=== PATIENT | female | born 1945 | race Caucasian/White ===

== ENCOUNTER 2017-02-21 15:22 | Emergency (ER) | payer MEDICARE, OTHER ==
[2017-02-21] MEDS ORDERED: DIAZEPAM 10 MG/2 ML SYR ONE (16:07)
[2017-02-21] MEDS ORDERED: NORMAL SALINE 1,000 ML IV ONE (16:08)
[2017-02-21] MEDS ORDERED: ONDANSETRON HCL 4 MG/2 ML VIAL ONE (16:08)
[2017-02-21] MEDS ORDERED: HYDROmorphone HCL 1 MG/ML SYR ONE (16:08)
--- NOTE | 2017-02-21 17:05 | MRI REPORT ---
HISTORY: Severe low back pain extending to right hip and leg COMPARISON: None TECHNIQUE: Multiplanar multi sequential imaging of the lumbar spine obtained without IV gadolinium. FINDINGS: Alignment: Superior endplate compression fracture of T12, chronic in nature. Approximately 20% anteri or height loss. Marrow signal: Minimal endplate edema from T12 through L5 related to degenerative disc disease. Spinal cord: No cord signal abnormality. The conus terminates at L1-L2. Intervertebral discs: Disc desiccation throughout the lumbar spine. Moderate L1-L2 and L5-S1 disc hei ght loss. Axial images demonstrate the following: L1-L2: Diffuse disc bulge. No canal stenosis. Mild bilateral foraminal narrowing. L2-L3: Diffuse disc bulge. Spinal canal widely patent. Mild facet arthrosis. Moderate right and mild left foraminal stenosis per L3-L4: Diffuse disc bulge. Spinal canal remains patent. Mild to moderate bilateral foraminal stenosis . L4-L5: Diffuse disc bulge with moderate bilateral facet arthrosis and ligament flavum thickening. Sub articular disc extrusion with cranial migration, extending superiorly to the level of L3-L4. Extruded disc fragment measures up to 9 mm AP x 13 mm transverse x 2.2 cm craniocaudal, completely effacing t he right lateral recess contacting and displacing the traversing right L4 and L5 nerve roots in the t hecal sac. Severe right and moderate left foraminal stenosis. Right foraminal stenosis is more pronou nced related to the disc extrusion from the above level. L5-S1: Diffuse disc bulge with superimposed central disc extrusion. Disc contacts but does not signif icant displace the traversing right S1 nerve root. Spinal canal remains patent. Partial effacement ri ght lateral recess. Severe left and moderate right foraminal stenosis. IMPRESSION: 1. L4-L5 right paracentral disc extrusion with cranial migration to fully effaces the right lateral r ecess impinging on the right L4 and L5 nerve roots. 2. L5-S1 disc protrusion contacts but does not significantly displace the traversing right S1 nerve r oot in the thecal sac. 3. Multilevel moderate to severe foraminal stenosis as detailed above. 4. Mild multilevel endplate edema related to degenerative disc disease, a potential source of pain. Final Electronic Signature: This report was electronically signed by Cayetano Toth MD on 02/21/2017 5:03 PM. antonio /
--- NOTE | 2017-02-21 18:20 | ER PHYSICIAN DOCUMENTATION ---
Physician Documentation [facility] Name:Meagan Castaneda Age:71 yrs Sex:Female :1945 Arrival Date:02/21/2017 Time:15:22 [facility] ([place] Private MD: Gee Augustin Disposition: 02/21/17 17:56 Discharged to Home/Self Care. Impression: Acute Low Back Pain. - Condition is Good. - Discharge Instructions: BACK PAIN (Acute or Chronic). - Prescriptions for Dilaudid 2 mg Oral Tablet - take 1 tablet by ORAL route every 6 hours As needed; 10 tablet. Zofran 4 mg Oral Tablet - take 1-2 tablet by ORAL route every 4-6 hours As needed; 10 tablet. - Medical Reconciliation form form. - Follow up: Private Physician; When: 2 - 3 days; Reason: Recheck today's complaints, Continuance of care. - Problem is new. - Symptoms have improved. - Notes: If your pain is severe, you can take dilaudid, but don't take the Ultram (tramadol) and the Dilaudid at the same time. Call your orthopedic surgeon first thing tomorrow and make arrangements to be seen HILARIO. You need to go to the Emergency Room if you become very weak, develop incontinence, or inability to walk. HPI: 02/21 15:40 This 71 yrs old Female presents to ER via Walk In with complaints of Back tl1 Pain, Leg Pain. 15:40 The patient presents with pain that is acute, and an injury. The symptoms are located tl1 in the low back, right low back. Onset: The symptoms/episode began/occurred suddenly, just prior to arrival. The pain radiates down the patient's right lower extremity. Associated signs and symptoms: Pertinent positives: weakness, Pertinent negatives: abdominal pain, incontinence, numbness. The problem was sustained Getting out of her car.. Modifying factors: the patient symptoms are aggravated by any movement. Severity of symptoms: At their worst the symptoms were severe, in the emergency department the symptoms are unchanged. The patient has experienced similar episodes in the past, a few times. Historical: - Allergies: PENICILLINS; SULFA (SULFONAMIDES); - Home Meds: 1. amlodipine 5 mg oral tab 1 tab once daily for Hypertension 2. tramadol 50 mg oral tab 1 tab every 6 hours as needed for Pain 3. Zanaflex 4 mg oral tab 1 tab every 6 hours as needed not to exceed 3 doses in 24 hours for Muscle Spasm 4. metformin 500 mg oral Tb24 2 tabs 2 times per day for Type 2 Diabetes Mellitus 5. Lantus 100 unit/mL subcutaneous soln 20units nightly for Type 2 Diabetes Mellitus 6. Humalog 100 unit/mL subcutaneous soln Unknown after meals and before bedtime for Type 2 Diabetes Mellitus 7. lisinopril 10 mg oral tab 1 tab once daily for Hypertension 8. clonidine 0.2 mg oral tab 1 tab 2 times per day for Hypertension - PMHx: Diabetes - IDDM; Hypertension; hyperlipidemia; OSTEOARTHRITIS; - PSHx: laminectomy C5,C6; L ankle repair; HYSTERECTOMY; CHOLECYSECTOMY; rotator cuff L shoulder; CARPAL TUNNEL REPAIR; R knee scope; - Tetanus: < 10 years. - Ebola Screening: : Patient negative for fever greater than or equal to 101.5 degrees Fahrenheit, and additional compatible Ebola Virus Disease symptoms. Patient denies exposure to infectious person. Patient denies travel to an Ebola-affected area in the 21 days before illness onset. . - Immunization history: Pneumococcal vaccine is up to date, Flu Vaccine < 1 year. - Social history: Smoking status: Patient states was never smoker of tobacco. ROS: 15:49 Back: Positive for decreased range of motion, pain at rest, pain with movement, tl1 radiated pain, of the lumbar area and right low back. 15:49 All other systems are negative. Exam: 15:49 Head/Face: Normocephalic, atraumatic. tl1 15:49 Constitutional: The patient appears alert, awake, well developed, well hydrated, well groomed, well nourished, in obvious distress, in obvious pain, restless, uncomfortable. 15:49 Cardiovascular: Rate: normal, Rhythm: regular, Heart sounds: murmur. 15:49 Respiratory: Respirations: normal, Breath sounds: are normal. 15:49 Abdomen/GI: Palpation: abdomen is soft and non-tender. 15:49 Back: pain, that is severe, of the right low back, ROM is painful, with all movement, decreased, with all movement, normal spinal alignment noted, CVA tenderness, is absent, vertebral tenderness, is not appreciated, muscle spasm, is appreciated in the left low back and right low back, Straight leg raises: right lower extremity illicits pain, at 15 degrees. 15:49 Musculoskeletal/extremity: Exam is negative for acute changes. 15:49 Skin: Exam negative for acute changes. 15:49 Neuro: Orientation: is normal, Mentation: is normal, Memory: appropriate for stated age, Cranial nerves: grossly normal, Motor: moves all fours, strength is 4/5 in the foot plantar flexion and dorsiflexion, Sensation: not tested, Gait: not tested. Deep tendon reflexes are 2+ (normal) in the right patellar and left patellar. Vital Signs: 15:36 BP 101 / 57; Pulse 82; Resp 16; Temp 98.2; Pulse Ox 88% on R/A; Weight 77.11 kg; Height lp 5 ft. 1 in. (154.94 cm); Pain 8/10; 17:21 BP 82 / 48; Pulse 70; Resp 16; Pulse Ox 93% on 2 lpm NC; lp 17:53 BP 115 / 64; Pulse 78; Resp 16; Pulse Ox 91% on R/A; lp 17:53 Pain 2/10; lp 15:36 Body Mass Index 32.12 (77.11 kg, 154.94 cm) lp MDM: 15:39 Patient medically screened. tl1 0403 17:07 Order name: LUMBAR SPINE W/O [id number] EDMS Dispensed Medications: Completed: NS 0.9% 1000 ml IV at 100 ml/hr once 16:00 Drug: HYDROmorphone 1 mg; Route: IVP; Infused Over: 4 mins; Site: left forearm; lp 17:00 Follow up: Response: Marked relief of symptoms; Pain is decreased lp 16:04 Drug: Ondansetron 4 mg; Route: IVP; Infused Over: 2 mins; Site: left forearm; lp 17:00 Follow up: Response: No adverse reaction; Nausea is decreased lp 16:08 Drug: Diazepam 5 mg; Route: IVP; Infused Over: 4 mins; Site: left forearm; lp 17:00 Follow up: Response: Marked relief of symptoms; Pain is decreased lp 16:15 Drug: NS 0.9% 1000 ml; Route: IV; Rate: 100 ml/hr; Site: left forearm; lp 17:23 Follow up: Response: No adverse reaction; No change in condition; IV Status: Infusion lp discontinued; IV Intake: 200ml 17:25 Follow up: Response: No adverse reaction; No change in condition lp 17:23 Drug: NS 0.9% 500 ml; Volume: 500 ml; Route: IV; Rate: bolus; Site: left forearm; lp 17:54 Follow up: Response: No adverse reaction; Blood pressure is elevated; IV Intake: 500ml lp 17:54 Follow up: IV Status: Completed infusion lp Signatures: Lili Razo RN RN Gee Mckeon MD MD tl1
--- NOTE | 2017-02-21 18:20 | ER NURSING DOCUMENTATION ---
Nurse's Notes [facility] Name:Meagan Castaneda Age:71 yrs Sex:Female :1945 Arrival Date:02/21/2017 Time:15:22 [facility] MD: Diagnosis:Acute Low Back Pain Presentation: 02/21 15:25 Presenting complaint: Patient states: Back Pain. Transition of care: Home. lp 15:25 Method Of Arrival: Walk In lp 15:25 Acuity: WYATT 3 lp Triage Assessment: 15:42 General: Appears uncomfortable, Behavior is anxious. Pain: Complains of pain in right lp lower back and right gluteus inessa Pain radiates to right leg Pain currently is 8 out of 10 on a pain scale. Pain began 2 hours ago Alleviated by nothing. EENT: No deficits noted. Neuro: No deficits noted. Cardiovascular: No deficits noted. Respiratory: No deficits noted. GI: No deficits noted. : No deficits noted. Derm: No deficits noted. Musculoskeletal: Circulation, motion, and sensation intact Capillary refill < 3 seconds. Historical: - Allergies: PENICILLINS; SULFA (SULFONAMIDES); - Home Meds: 1. amlodipine 5 mg oral tab 1 tab once daily for Hypertension 2. tramadol 50 mg oral tab 1 tab every 6 hours as needed for Pain 3. Zanaflex 4 mg oral tab 1 tab every 6 hours as needed not to exceed 3 doses in 24 hours for Muscle Spasm 4. metformin 500 mg oral Tb24 2 tabs 2 times per day for Type 2 Diabetes Mellitus 5. Lantus 100 unit/mL subcutaneous soln 20units nightly for Type 2 Diabetes Mellitus 6. Humalog 100 unit/mL subcutaneous soln Unknown after meals and before bedtime for Type 2 Diabetes Mellitus 7. lisinopril 10 mg oral tab 1 tab once daily for Hypertension 8. clonidine 0.2 mg oral tab 1 tab 2 times per day for Hypertension - PMHx: Diabetes - IDDM; Hypertension; hyperlipidemia; OSTEOARTHRITIS; - PSHx: laminectomy C5,C6; L ankle repair; HYSTERECTOMY; CHOLECYSECTOMY; rotator cuff L shoulder; CARPAL TUNNEL REPAIR; R knee scope; - Tetanus: < 10 years. - Ebola Screening: : Patient negative for fever greater than or equal to 101.5 degrees Fahrenheit, and additional compatible Ebola Virus Disease symptoms. Patient denies exposure to infectious person. Patient denies travel to an Ebola-affected area in the 21 days before illness onset. . - Immunization history: Pneumococcal vaccine is up to date, Flu Vaccine < 1 year. - Social history: Smoking status: Patient states was never smoker of tobacco. Screenin:44 Infectious Disease Risk None. Abuse screen: Denies threats or abuse. Denies injuries lp from another. Nutritional screening: No deficits noted. Assessment: 15:43 Neuro: Level of Consciousness is awake, alert, Oriented to person, place, time, event, lp Lard Maker are equal bilaterally Weakness in right leg(s) Gait is unsteady, Speech is normal, Facial symmetry appears normal. EENT: No deficits noted. Vital Signs: 15:36 BP 101 / 57; Pulse 82; Resp 16; Temp 98.2; Pulse Ox 88% on R/A; Weight 77.11 kg; Height lp 5 ft. 1 in. (154.94 cm); Pain 8/10; 17:21 BP 82 / 48; Pulse 70; Resp 16; Pulse Ox 93% on 2 lpm NC; lp 17:53 BP 115 / 64; Pulse 78; Resp 16; Pulse Ox 91% on R/A; lp 17:53 Pain 2/10; lp 15:36 Body Mass Index 32.12 (77.11 kg, 154.94 cm) lp ED Course: 15:23 Patient arrived in ED. lm3 15:25 Lili Razo, ANNE MARIE is Primary Nurse. lp 15:26 Triage completed. lp 15:39 Gee Calderon MD is Attending Physician. tl1 15:[address] Calderon notified. lp 15:44 Valuables Remains with patient Patient has correct armband on for positive lp identification. Placed in gown. Bed in low position. Call light in reach. Side rails up X 1. 15:53 Patient moved to MRI. ms 16:33 Inserted peripheral IV: 20 gauge in left forearm. lp Administered Medications: Completed: NS 0.9% 1000 ml IV at 100 ml/hr once 16:00 Drug: HYDROmorphone 1 mg; Route: IVP; Infused Over: 4 mins; Site: left forearm; lp 17:00 Follow up: Response: Marked relief of symptoms; Pain is decreased lp 16:04 Drug: Ondansetron 4 mg; Route: IVP; Infused Over: 2 mins; Site: left forearm; lp 17:00 Follow up: Response: No adverse reaction; Nausea is decreased lp 16:08 Drug: Diazepam 5 mg; Route: IVP; Infused Over: 4 mins; Site: left forearm; lp 17:00 Follow up: Response: Marked relief of symptoms; Pain is decreased lp 16:15 Drug: NS 0.9% 1000 ml; Route: IV; Rate: 100 ml/hr; Site: left forearm; lp 17:23 Follow up: Response: No adverse reaction; No change in condition; IV Status: Infusion lp discontinued; IV Intake: 200ml 17:25 Follow up: Response: No adverse reaction; No change in condition lp 17:23 Drug: NS 0.9% 500 ml; Volume: 500 ml; Route: IV; Rate: bolus; Site: left forearm; lp 17:54 Follow up: Response: No adverse reaction; Blood pressure is elevated; IV Intake: 500ml lp 17:54 Follow up: IV Status: Completed infusion lp Intake: 17:23 IV: 200ml; Total: 200ml. lp 17:54 IV: 500ml; Total: 700ml. lp Outcome: 17:56 Discharge ordered by tl1 18:17 Discharged to home ambulatory. lp 18:17 Condition: improved 18:17 Instructed on discharge instructions, follow up and referral plans. medication usage. 18:18 Patient left the ED. lp / 13:25 Discharge F/U Call: Unable to reach: no answer [email or web address] Signatures: Jolly Turner RN RN ma Pavlish, Lena, RN RN lp Strickland, Mary ms Leigh, Tom, MD MD tl1 Hortencia Haddad 3
== END 2017-02-21 18:19 | disposition home or self-care (01) ==
LOC: ER 15:22
DX: M54.5 Low back pain (principal); M54.16 Radiculopathy, lumbar region; R53.1 Weakness; E11.9 Type 2 diabetes mellitus without complications; Z79.4 Long term (current) use of insulin; I10 Essential (primary) hypertension; Z79.899 Other long term (current) drug therapy
CPT/HCPCS: 72148; 96361; 96374; 96375; 99283; 99284; J1170; J2405; J3360; J7030